=== PATIENT | male | born 1985 | race Caucasian/White ===

== ENCOUNTER 2018-08-28 17:44 | Emergency (ER) | payer OTHER ==
[~2018-08-28] VITALS: Ht 180.3 cm; Wt 122.7 kg
[2018-08-28] MEDS ORDERED: AmLODIPine BESYLATE 5 MG TABLET PO ONE (19:15)
[2018-08-28 19:52] VITALS: BP 160/105
== END 2018-08-28 19:55 | disposition home or self-care (01) ==
LOC: EMS 17:46
DX: I10 Essential (primary) hypertension (principal); F15.90 Other stimulant use, unspecified, uncomplicated

== ENCOUNTER 2018-09-01 12:35 | Emergency (ER) | payer OTHER ==
[~2018-09-01] VITALS: Ht 180.3 cm; Wt 127.3 kg
[2018-09-01 14:38] VITALS: BP 146/100
== END 2018-09-01 14:50 | disposition home or self-care (01) ==
LOC: EMS 12:37
DX: R76.11 Nonspecific reaction to tuberculin skin test without active tuberculosis (principal); Z11.1 Encounter for screening for respiratory tuberculosis; I10 Essential (primary) hypertension

== ENCOUNTER 2018-10-01 23:33 | Emergency (ER) | payer OTHER ==
[~2018-10-01] VITALS: Ht 180.3 cm; Wt 127.3 kg
[2018-10-02] MEDS ORDERED: AMLO-512 PO (00:16)
[2018-10-02] MEDS ORDERED: LORATADINE 10 MG TABLET PO ONE (02:15)
[2018-10-02 05:10] VITALS: BP 122/81
== END 2018-10-02 06:17 | disposition home or self-care (01) ==
LOC: EMS 23:34
DX: S83.91XA Sprain of unspecified site of right knee, initial encounter (principal); T78.49XA Other allergy, initial encounter; I10 Essential (primary) hypertension; W18.39XA Other fall on same level, initial encounter; Y93.02 Activity, running; Y92.89 Other specified places as the place of occurrence of the external cause; Y99.8 Other external cause status; X58.XXXA Exposure to other specified factors, initial encounter

== ENCOUNTER 2018-11-22 07:36 | Emergency (ER) | payer OTHER ==
[~2018-11-22] VITALS: Ht 180.3 cm; Wt 129.6 kg
[~2018-11-22 07:36] MED LIST: AMLO10TA7 PO
[2018-11-22] MEDS ORDERED: METO5TAB95 PO (07:55)
[2018-11-22] MEDS ORDERED: NAPR250T4 PO (07:55)
[2018-11-22] MEDS ORDERED: ATEN25TA PO (07:55)
[2018-11-22] MEDS ORDERED: CEPHALEXIN MONOHYDRATE 500 MG CAPSULE PO ONE (09:00)
[2018-11-22] MEDS ORDERED: SULFAMETHOX/TRIMETH DS 800-160 MG/TABLET PO ONE (09:00)
[2018-11-22] MEDS ORDERED: KETOROLAC TROMETHAMINE 30 MG/ML VIAL IM ONE (09:00)
[2018-11-22 09:01] LABS: BASOPHILS % (AUTO) 0.6 % (0.0-2.0); HEMOGLOBIN 13.1 g/dL (13.5-17.5); LYMPHOCYTES # (AUTO) 1.2 K/uL (1.0-4.8); LYMPHOCYTES % (AUTO) 11.2 % (22.0-44.0); MEAN CORPUSCULAR HGB CONC 34.3 G/dL (31.0-37.0); MEAN CORPUSCULAR VOLUME 90 fL (80-100); MONOCYTES # (AUTO) 1.2 K/uL (0.1-1.0); NEUTROPHILS # (AUTO) 8.2 K/uL (1.8-7.7); NEUTROPHILS % (AUTO) 75.2 % (40.0-70.0); PLATELET COUNT (AUTO) 175 K/uL (150-450); RED BLOOD CELL COUNT(AUTO) 4.22 MIL/uL (4.50-5.90); RED CELL DISTRIBUTION WIDTH 12.8 % (11.5-14.5)
[2018-11-22 09:10] LABS: ANION GAP 7 mmol/L (8-16); CALCIUM, TOTAL 9.3 mg/dL (8.8-10.5); CARBON DIOXIDE 28 mmol/L (22-29); CHLORIDE 105 mmol/L (98-107); CREATININE 0.87 mg/dL (0.60-1.30); GLOMERULAR FILTR. RATE CALC > 60 mL/min (>60); GLUCOSE,RANDOM 104 mg/dL (70-110); SODIUM SERUM 140 mmol/L (136-145); UREA NITROGEN, BLOOD 16 mg/dL (7-18)
[2018-11-22 09:16] LABS: ALANINE AMINOTRANSFERASE 25 U/L (12-78); ALKALINE PHOSPHATASE 73 U/L (46-116); ASPARTATE AMINOTRANSFERASE 20 U/L (15-37); BILIRUBIN,TOTAL 0.7 mg/dL (0.1-1.0); TOTAL PROTEIN, SERUM 7.4 g/dL (6.4-8.2)
[2018-11-22 10:06] VITALS: BP 126/80
== END 2018-11-22 10:09 | disposition home or self-care (01) ==
LOC: EMS 07:37
DX: N49.2 Inflammatory disorders of scrotum (principal); I10 Essential (primary) hypertension; F15.90 Other stimulant use, unspecified, uncomplicated
CPT/HCPCS: 36415; 76870; 80053; 83605; 85025; 96372; 99284; J1885

== ENCOUNTER 2018-11-24 09:36 | Inpatient (IN) | payer OTHER ==
[~2018-11-24] VITALS: Ht 180.3 cm; Wt 129.6 kg
[~2018-11-24 09:36] MED LIST changes: +ATEN25TA PO; +METO5TAB95 PO; +NAPR250T4 PO
[2018-11-24] MEDS ORDERED: PIPERACILLIN SODIUM/TAZOBACTAM 4.5 GM in DEXTROSE 5%-WATER 100 ML IV ONE (11:00)
[2018-11-24] MEDS ORDERED: VANCOMYCIN HCL 1 GM/D5% WATER 200 ML IV ONE (11:00)
[2018-11-24] MEDS ORDERED: KETOROLAC TROMETHAMINE 30 MG/ML VIAL IVP ONE (11:00)
[2018-11-24 11:36] LABS: BASOPHILS % (AUTO) 1.1 % (0.0-2.0); EOSINOPHILS % (AUTO) 4.2 % (1.0-6.0); HEMATOCRIT 39.5 % (41-53); HEMOGLOBIN 13.4 g/dL (13.5-17.5); LYMPHOCYTES # (AUTO) 1.2 K/uL (1.0-4.8); MEAN CORPUSCULAR HEMOGLOBIN 30.3 pg (26.0-34.0); MEAN CORPUSCULAR VOLUME 89 fL (80-100); MONOCYTES # (AUTO) 0.8 K/uL (0.1-1.0); MONOCYTES % (AUTO) 12.3 % (2.0-9.0); NEUTROPHILS # (AUTO) 3.9 K/uL (1.8-7.7); NEUTROPHILS % (AUTO) 63.4 % (40.0-70.0); PLATELET COUNT (AUTO) 218 K/uL (150-450); RED BLOOD CELL COUNT(AUTO) 4.43 MIL/uL (4.50-5.90); RED CELL DISTRIBUTION WIDTH 12.8 % (11.5-14.5)
[2018-11-24] MEDS ORDERED: IOVERSOL 350 MG/ML 150 ML VIAL ONE ×2 (11:37→13:07)
[2018-11-24] MEDS ORDERED: SODIUM CHLORIDE 0.9% 100 ML ONE (11:37)
[2018-11-24 11:41] LABS: ANION GAP 7 mmol/L (8-16); CALCIUM, TOTAL 9.3 mg/dL (8.8-10.5); CARBON DIOXIDE 26 mmol/L (22-29); CHLORIDE 104 mmol/L (98-107); CREATININE 0.92 mg/dL (0.60-1.30); GLOMERULAR FILTR. RATE CALC > 60 mL/min (>60); GLUCOSE,RANDOM 99 mg/dL (70-110); SODIUM SERUM 137 mmol/L (136-145); UREA NITROGEN, BLOOD 14 mg/dL (7-18)
[2018-11-24 11:47] LABS: ALANINE AMINOTRANSFERASE 20 U/L (12-78); ALBUMIN 3.9 g/dL (3.4-5.0); ALKALINE PHOSPHATASE 76 U/L (46-116); ASPARTATE AMINOTRANSFERASE 21 U/L (15-37); BILIRUBIN,TOTAL 0.4 mg/dL (0.1-1.0); TOTAL PROTEIN, SERUM 7.6 g/dL (6.4-8.2)
[2018-11-24 12:01] LABS: LACTIC ACID 0.8 mmol/L (0.4-2.0)
[2018-11-24] MEDS ORDERED: SODIUM CHLORIDE 0.9% 1,000 ML IV ONE (13:00)
[2018-11-24] MEDS ORDERED: ALBUTEROL SULFATE 2.5 MG/0.5 ML NEB SOLUTION NEB PRN (15:30)
[2018-11-24] MEDS ORDERED: MORPHINE SULFATE 2 MG/ML SYRINGE IVP PRN (15:30)
[2018-11-24] MEDS ORDERED: ONDANSETRON HCL 4 MG/2 ML VIAL IVP PRN (15:30)
[2018-11-24] MEDS ORDERED: IPRATROPIUM BROMIDE 0.5 MG/2.5 ML NEB SOLUTION NEB PRN (15:30)
[2018-11-24] MEDS ORDERED: ACETAMINOPHEN 325 MG TABLET PO PRN (15:30)
[2018-11-24] MEDS ORDERED: BISACODYL 10 MG RECTAL RECTAL SUPPOSITORY PR PRN (15:30)
[2018-11-24] MEDS ORDERED: MAGNESIUM HYDROXIDE SUSPENSION 30 ML UDCUP PO PRN (15:30)
[2018-11-24] MEDS ORDERED: VANCOMYCIN HCL 1.5 GM in DEXTROSE 5%-WATER 250 ML IV ONE (16:00)
[2018-11-24] MEDS ORDERED: CLINDAMYCIN 900 MG/D5% WATER 50 ML IV SCH (16:30)
[2018-11-24] MEDS: PANTOPRAZOLE SODIUM 40 MG DR TABLET PO SCH (16:54)
[2018-11-24] MEDS: PIPERACILLIN/TAZO 3.375 GM/D5W 50 ML IV SCH ×2 (17:00→23:16)
[2018-11-24 17:23] LABS: C-REACTIVE PROTEIN QUANT 2.45 mg/dL (0.00-0.30)
[2018-11-24] MEDS: MULTIVITAMINS WITH MINERALS, THERAPEUTIC TABLET PO SCH (19:18)
[2018-11-24] MEDS: THIAMINE HCL 100 MG TABLET PO SCH (21:10)
[2018-11-24] MEDS: DOCUSATE SODIUM 100 MG CAPSULE PO SCH (21:11)
[2018-11-24] MEDS: CLINDAMYCIN 900 MG/D5% WATER 50 ML IV SCH (21:11)
[2018-11-24] MEDS: FOLIC ACID 1 MG TABLET PO SCH (21:11)
[2018-11-24] MEDS: SODIUM CHLORIDE 0.9% 1,000 ML IV SCH (21:12)
[2018-11-24 21:13] VITALS: BP 117/64
[2018-11-24] MEDS: VANCOMYCIN HCL 1.5 GM in DEXTROSE 5%-WATER 250 ML IV SCH (23:16)
[2018-11-25] MEDS: CLINDAMYCIN 900 MG/D5% WATER 50 ML IV SCH ×3 (01:45→18:08)
[2018-11-25 04:27] VITALS: BP 108/68
[2018-11-25] MEDS: PIPERACILLIN/TAZO 3.375 GM/D5W 50 ML IV SCH ×4 (04:51→23:23)
[2018-11-25 06:04] LABS: BASOPHILS % (AUTO) 1.4 % (0.0-2.0); HEMATOCRIT 36.5 % (41-53); HEMOGLOBIN 12.5 g/dL (13.5-17.5); LYMPHOCYTES # (AUTO) 0.9 K/uL (1.0-4.8); MEAN CORPUSCULAR HEMOGLOBIN 30.3 pg (26.0-34.0); MEAN CORPUSCULAR HGB CONC 34.2 G/dL (31.0-37.0); MEAN CORPUSCULAR VOLUME 89 fL (80-100); MONOCYTES # (AUTO) 0.7 K/uL (0.1-1.0); MONOCYTES % (AUTO) 14.7 % (2.0-9.0); NEUTROPHILS # (AUTO) 2.7 K/uL (1.8-7.7); NEUTROPHILS % (AUTO) 57.9 % (40.0-70.0); PLATELET COUNT (AUTO) 209 K/uL (150-450); RED BLOOD CELL COUNT(AUTO) 4.12 MIL/uL (4.50-5.90); RED CELL DISTRIBUTION WIDTH 12.4 % (11.5-14.5)
[2018-11-25] MEDS: VANCOMYCIN HCL 1.5 GM in DEXTROSE 5%-WATER 250 ML IV SCH ×3 (06:12→23:24)
[2018-11-25 06:13] LABS: ANION GAP 6 mmol/L (8-16); CALCIUM, TOTAL 8.9 mg/dL (8.8-10.5); CARBON DIOXIDE 27 mmol/L (22-29); CHLORIDE 103 mmol/L (98-107); CREATININE 1.11 mg/dL (0.60-1.30); GLOMERULAR FILTR. RATE CALC > 60 mL/min (>60); GLUCOSE,RANDOM 101 mg/dL (70-110); POTASSIUM 4.5 mmol/L (3.5-5.1); SODIUM SERUM 136 mmol/L (136-145); UREA NITROGEN, BLOOD 13 mg/dL (7-18)
[2018-11-25 08:23] VITALS: BP 125/63
[2018-11-25] MEDS: THIAMINE HCL 100 MG TABLET PO SCH (09:00)
[2018-11-25] MEDS: DOCUSATE SODIUM 100 MG CAPSULE PO SCH ×2 (09:00→20:35)
[2018-11-25] MEDS: AmLODIPine BESYLATE 10 MG TABLET PO SCH (09:00)
[2018-11-25] MEDS: PANTOPRAZOLE SODIUM 40 MG DR TABLET PO SCH (09:00)
[2018-11-25] MEDS: FOLIC ACID 1 MG TABLET PO SCH (09:00)
[2018-11-25] MEDS: ATENOLOL 25 MG TABLET PO SCH (09:00)
[2018-11-25] MEDS: MULTIVITAMINS WITH MINERALS, THERAPEUTIC TABLET PO SCH (09:00)
[2018-11-25 12:08] VITALS: BP 113/71
[2018-11-25] MEDS ORDERED: RINGERS SOLUTION,LACTATED 1,000 ML IV ONE (13:00)
[2018-11-25] MEDS ORDERED: VANCOMYCIN HCL 1 GM/VIAL ONE (13:19)
[2018-11-25] MEDS ORDERED: SODIUM CHLORIDE 0.9% 0 ML IV ONE (13:19)
[2018-11-25] MEDS ORDERED: SUGAMMADEX SODIUM 200 MG/2 ML VIAL IVP ONE (13:52)
[2018-11-25] MEDS ORDERED: MEPERIDINE-PF 25 MG/ML VIAL IVP PRN (14:00)
[2018-11-25] MEDS ORDERED: FentaNYL CITRATE-PF 100 MCG/2 ML VIAL IVP PRN (14:00)
[2018-11-25] MEDS ORDERED: HYDROmorphone 2 MG/ML SYRINGE IVP PRN (14:00)
[2018-11-25] MEDS ORDERED: BUPIVACAINE 0.25%/EPI 1:200,000/PF 10 ML VIAL ONE (14:04)
[2018-11-25] MEDS: HYDROmorphone 2 MG/ML SYRINGE IVP PRN ×2 (15:43→21:32)
[2018-11-25] MEDS: IBUPROFEN 200 MG TABLET PO SCH ×2 (16:54→20:35)
[2018-11-25 17:21] VITALS: BP 126/75
[2018-11-25 19:38] VITALS: BP 125/68
[2018-11-25] MEDS: OXYGEN THERAPY IH SCH (20:00)
[2018-11-25] MEDS: SODIUM CHLORIDE 0.9% 1,000 ML IV SCH (20:36)
[2018-11-26] VITALS (8 sets, daily range): BP systolic 109–137; BP diastolic 51–82
[2018-11-26] MEDS: CLINDAMYCIN 900 MG/D5% WATER 50 ML IV SCH ×3 (01:49→16:57)
[2018-11-26] MEDS: PIPERACILLIN/TAZO 3.375 GM/D5W 50 ML IV SCH ×2 (05:15→10:47)
[2018-11-26] MEDS ORDERED: FentaNYL CITRATE-PF 100 MCG/2 ML VIAL IVP ONE (05:31)
[2018-11-26] MEDS ORDERED: PROPOFOL 1% 20 ML VIAL IVP ONE (05:31)
[2018-11-26] MEDS ORDERED: SUCCINYLCHOLINE CHLORIDE 20 MG/ML 10 ML VIAL IVP ONE (05:31)
[2018-11-26] MEDS ORDERED: KETOROLAC TROMETHAMINE 60 MG/2 ML VIAL IM ONE (05:31)
[2018-11-26] MEDS ORDERED: LIDOCAINE/PF 2% 5 ML VIAL IM ONE (05:31)
[2018-11-26] MEDS ORDERED: MIDAZOLAM HCL 2 MG/2 ML VIAL IVP ONE (05:31)
[2018-11-26] MEDS ORDERED: ROCURONIUM BROMIDE 10 MG/ML 5 ML VIAL IVP ONE (05:31)
[2018-11-26 06:11] LABS: BASOPHILS % (AUTO) 0.3 % (0.0-2.0); EOSINOPHILS % (AUTO) 0.1 % (1.0-6.0); HEMATOCRIT 37.3 % (41-53); LYMPHOCYTES # (AUTO) 0.6 K/uL (1.0-4.8); LYMPHOCYTES % (AUTO) 7.3 % (22.0-44.0); MEAN CORPUSCULAR HEMOGLOBIN 30.4 pg (26.0-34.0); MEAN CORPUSCULAR HGB CONC 34.8 G/dL (31.0-37.0); MEAN CORPUSCULAR VOLUME 88 fL (80-100); MONOCYTES # (AUTO) 0.5 K/uL (0.1-1.0); MONOCYTES % (AUTO) 6.3 % (2.0-9.0); NEUTROPHILS # (AUTO) 7.1 K/uL (1.8-7.7); PLATELET COUNT (AUTO) 257 K/uL (150-450); RED BLOOD CELL COUNT(AUTO) 4.26 MIL/uL (4.50-5.90); RED CELL DISTRIBUTION WIDTH 12.5 % (11.5-14.5)
[2018-11-26 06:20] LABS: ANION GAP 9 mmol/L (8-16); CARBON DIOXIDE 27 mmol/L (22-29); CHLORIDE 101 mmol/L (98-107); CREATININE 0.91 mg/dL (0.60-1.30); GLOMERULAR FILTR. RATE CALC > 60 mL/min (>60); GLUCOSE,RANDOM 129 mg/dL (70-110); SODIUM SERUM 137 mmol/L (136-145); UREA NITROGEN, BLOOD 12 mg/dL (7-18); VANCOMYCIN,RANDOM 16.7 mcg/mL (25.0-50.0)
[2018-11-26] MEDS: VANCOMYCIN HCL 1.5 GM in DEXTROSE 5%-WATER 250 ML IV SCH ×3 (07:00→23:21)
[2018-11-26 07:39] LABS: PLATELET MORPHOLOGY COMMENT GIANT PLTS PRESENT
[2018-11-26] MEDS: OXYGEN THERAPY IH SCH (08:00)
[2018-11-26] MEDS: FOLIC ACID 1 MG TABLET PO SCH (08:19)
[2018-11-26] MEDS: PANTOPRAZOLE SODIUM 40 MG DR TABLET PO SCH (08:19)
[2018-11-26] MEDS: IBUPROFEN 200 MG TABLET PO SCH (08:19)
[2018-11-26] MEDS: AmLODIPine BESYLATE 10 MG TABLET PO SCH (08:19)
[2018-11-26] MEDS: MULTIVITAMINS WITH MINERALS, THERAPEUTIC TABLET PO SCH (08:19)
[2018-11-26] MEDS: THIAMINE HCL 100 MG TABLET PO SCH (08:20)
[2018-11-26] MEDS: DOCUSATE SODIUM 100 MG CAPSULE PO SCH ×2 (08:23→20:31)
[2018-11-26] MEDS: ATENOLOL 25 MG TABLET PO SCH (10:37)
[2018-11-26] MEDS: SODIUM CHLORIDE 0.9% 1,000 ML IV SCH (10:37)
[2018-11-26] MEDS: HYDROmorphone 2 MG/ML SYRINGE IVP PRN ×2 (10:37→20:43)
[2018-11-27] MEDS: CLINDAMYCIN 900 MG/D5% WATER 50 ML IV SCH ×2 (01:43→09:12)
[2018-11-27 04:45] VITALS: BP 118/66
[2018-11-27] MEDS: VANCOMYCIN HCL 1.5 GM in DEXTROSE 5%-WATER 250 ML IV SCH ×3 (06:05→23:05)
[2018-11-27 06:41] LABS: ANION GAP 5 mmol/L (8-16); CALCIUM, TOTAL 9.1 mg/dL (8.8-10.5); CARBON DIOXIDE 28 mmol/L (22-29); CHLORIDE 104 mmol/L (98-107); CREATININE 0.98 mg/dL (0.60-1.30); GLOMERULAR FILTR. RATE CALC > 60 mL/min (>60); GLUCOSE,RANDOM 101 mg/dL (70-110); POTASSIUM 4.1 mmol/L (3.5-5.1); SODIUM SERUM 137 mmol/L (136-145); UREA NITROGEN, BLOOD 15 mg/dL (7-18)
[2018-11-27 07:24] VITALS: BP 111/66
[2018-11-27] MEDS: OXYGEN THERAPY IH SCH (08:00)
[2018-11-27] MEDS ORDERED: SODIUM CHLORIDE 0.9% 500 ML IV ONE (08:52)
[2018-11-27] MEDS: FOLIC ACID 1 MG TABLET PO SCH (09:12)
[2018-11-27] MEDS: PANTOPRAZOLE SODIUM 40 MG DR TABLET PO SCH (09:12)
[2018-11-27] MEDS: THIAMINE HCL 100 MG TABLET PO SCH (09:12)
[2018-11-27] MEDS: DOCUSATE SODIUM 100 MG CAPSULE PO SCH ×2 (09:12→20:36)
[2018-11-27] MEDS: ATENOLOL 25 MG TABLET PO SCH (09:12)
[2018-11-27] MEDS: MULTIVITAMINS WITH MINERALS, THERAPEUTIC TABLET PO SCH (09:12)
[2018-11-27] MEDS ORDERED: BACTDSB PO (11:30)
[2018-11-27 11:46] VITALS: BP 105/48
[2018-11-27 15:29] VITALS: BP 122/66
[2018-11-27] MEDS: HYDROmorphone 2 MG/ML SYRINGE IVP PRN ×2 (16:57→22:19)
[2018-11-27 19:45] VITALS: BP 121/71
[2018-11-27 23:40] VITALS: BP 101/60
[2018-11-28 05:19] VITALS: BP 111/67
[2018-11-28 05:57] LABS: ANION GAP 6 mmol/L (8-16); CALCIUM, TOTAL 9.2 mg/dL (8.8-10.5); CARBON DIOXIDE 30 mmol/L (22-29); CHLORIDE 100 mmol/L (98-107); CREATININE 0.98 mg/dL (0.60-1.30); GLOMERULAR FILTR. RATE CALC > 60 mL/min (>60); GLUCOSE,RANDOM 95 mg/dL (70-110); POTASSIUM 3.8 mmol/L (3.5-5.1); SODIUM SERUM 136 mmol/L (136-145); UREA NITROGEN, BLOOD 13 mg/dL (7-18)
[2018-11-28] MEDS: VANCOMYCIN HCL 1.5 GM in DEXTROSE 5%-WATER 250 ML IV SCH ×2 (06:06→15:48)
[2018-11-28 08:10] VITALS: BP 113/78
[2018-11-28] MEDS: OXYGEN THERAPY IH SCH ×2 (08:51→08:59)
[2018-11-28] MEDS: MULTIVITAMINS WITH MINERALS, THERAPEUTIC TABLET PO SCH (08:52)
[2018-11-28] MEDS: PANTOPRAZOLE SODIUM 40 MG DR TABLET PO SCH (08:52)
[2018-11-28] MEDS: DOCUSATE SODIUM 100 MG CAPSULE PO SCH (08:52)
[2018-11-28] MEDS: FOLIC ACID 1 MG TABLET PO SCH (08:52)
[2018-11-28] MEDS: THIAMINE HCL 100 MG TABLET PO SCH (08:53)
[2018-11-28] MEDS: ATENOLOL 25 MG TABLET PO SCH (08:53)
[2018-11-28] MEDS: HYDROmorphone 2 MG/ML SYRINGE IVP PRN ×2 (08:53→15:49)
[2018-11-28 11:53] VITALS: BP 130/67
[2018-11-28 15:10] VITALS: BP 126/81
== END 2018-11-28 18:09 | DRG 501 ==
LOC: EMS 09:37 → 6S 20:00 → 6N 11-26 10:13
PROVIDERS: ADMIT Internal Medicine; ATTEND Internal Medicine
PROC: 0VB50ZZ Excision of Scrotum, Open Approach (ICD-10-PCS; principal; 2018-11-25 13:00)
DX: N49.2 Inflammatory disorders of scrotum (principal); E66.01 Morbid (severe) obesity due to excess calories; L03.315 Cellulitis of perineum; D63.8 Anemia in other chronic diseases classified elsewhere; I10 Essential (primary) hypertension; G47.33 Obstructive sleep apnea (adult) (pediatric); F10.20 Alcohol dependence, uncomplicated; W57.XXXA Bitten or stung by nonvenomous insect and other nonvenomous arthropods, initial encounter; Y93.89 Activity, other specified; Y92.89 Other specified places as the place of occurrence of the external cause; Y99.8 Other external cause status; Z59.0 Homelessness; Z83.3 Family history of diabetes mellitus; Z79.899 Other long term (current) drug therapy; Z22.322 Carrier or suspected carrier of Methicillin resistant Staphylococcus aureus; Z68.39 Body mass index [BMI] 39.0-39.9, adult
CPT/HCPCS: 72193; 74177; 76999; 83605; 84145; 85651; 86140; 87040; 87070; 87081; 87205; 88304; 94660; J0330; J1170; J1885; J2250; J2270; J2543; J2704; J3010; J3370; J3490; J7030; J7040; J7050; J7060; J7120

== ENCOUNTER 2018-12-28 12:11 | Emergency (ER) | payer OTHER ==
[~2018-12-28] VITALS: Ht 180.3 cm; Wt 127.3 kg
[~2018-12-28 12:11] MED LIST changes: +BACTDSB PO
[2018-12-28 15:46] VITALS: BP 130/89
== END 2018-12-28 15:46 | disposition home or self-care (01) ==
LOC: EMS 12:12
DX: S61.230A Puncture wound without foreign body of right index finger without damage to nail, initial encounter (principal); I10 Essential (primary) hypertension; Z79.899 Other long term (current) drug therapy; W45.8XXA Other foreign body or object entering through skin, initial encounter; Y93.89 Activity, other specified; Y92.59 Other trade areas as the place of occurrence of the external cause; Y99.8 Other external cause status